=== PATIENT | male | born 1965 | race Caucasian/White ===

== ENCOUNTER 2019-08-23 08:51 | Emergency (ER) | payer BC, OTHER ==
[2019-08-23 09:55] LABS: #Basophils 0.1 thou/uL (0.0-0.2); #Eosinphils 0.1 thou/uL (0.0-0.7); #Lymphocytes 1.6 thou/uL (1.20-3.40); #Monocytes 0.9 thou/uL (0.11-0.59); %Basophils 0.4 % (0.0-1.0); %Eosinophils 0.7 % (0.0-10.0); Hemoglobin 15.2 g/dL (14.0-18.0); Mean Corpuscular HGB CONC 32.8 g/dL (32.0-36.0); Mean Corpuscular Hemoglobin 31.4 pg (27.0-31.0); Mean Corpuscular Volume 95.7 fL (78.0-98.0); Mean Platelet Volume 6.9 fL (7.4-10.4); Platelet Count 325 thou/uL (130-400); Red Blood Cell (RBC) Count 4.85 mill/uL (4.70-6.10); White Blood Cell (WBC) Count 14.7 thou/uL (4.8-10.8)
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
[2019-08-23 10:12] LABS: ALT (SGPT) 27 U/L (8-55); AST (SGOT) 25 U/L (5-34); Albumin 4.8 g/dL (3.5-5.0); Alkaline Phosphatase 46 U/L (40-110); Anion Gap 16 mmol/L (10-20); BUN (Urea Nitrogen) 11 mg/dL (8.4-25.7); Bilirubin, Total 0.7 mg/dL (0.2-1.2); Calc. Creatinine Clearance 0 mL/min (70-130); Calcium 9.7 mg/dL (7.8-10.44); Carbon Dioxide 23 mmol/L (22-29); Chloride 102 mmol/L (98-107); Estimated GFR-MDRD 73; Globulin 2.8 g/dL (2.4-3.5); Glucose 102 mg/dL (70-105); Potassium 3.9 mmol/L (3.5-5.1); Protein, Total 7.6 g/dL (6.0-8.3); Sodium 137 mmol/L (136-145)
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
[2019-08-23] MEDS ORDERED: Acetaminophen 500 MG TAB ONE (10:30)
[2019-08-23] MEDS ORDERED: ISOVUE-370 76%-LOCM 1 ML ONE (11:27)
== END 2019-08-23 11:39 | disposition home or self-care (01) ==
LOC: ERS 08:51
DX: S35.09XA Other injury of abdominal aorta, initial encounter (principal); S43.402A Unspecified sprain of left shoulder joint, initial encounter; I10 Essential (primary) hypertension; F17.210 Nicotine dependence, cigarettes, uncomplicated; Z79.899 Other long term (current) drug therapy; V59.9XXA Occupant (driver) (passenger) of pick-up truck or van injured in unspecified traffic accident, initial encounter
CPT/HCPCS: 69200; 71260; 72125; 74177; 80053; 85025; 96360; 96361

== ENCOUNTER 2019-11-26 07:15 | Outpatient (CLI) | payer BC ==
[2019-11-26 09:58] LABS: Hemoglobin 15.1 g/dL (14.0-18.0); Mean Corpuscular HGB CONC 33.3 g/dL (32.0-36.0); Mean Corpuscular Hemoglobin 32.2 pg (27.0-31.0); Mean Corpuscular Volume 96.8 fL (78.0-98.0); Mean Platelet Volume 6.9 fL (7.4-10.4); Platelet Count 267 thou/uL (130-400); RBC Distribution Width 12.1 % (11.5-14.5); Red Blood Cell (RBC) Count 4.69 mill/uL (4.70-6.10); White Blood Cell (WBC) Count 9.7 thou/uL (4.8-10.8)
[2019-11-26 10:18] LABS: Anion Gap 12 mmol/L (10-20); BUN (Urea Nitrogen) 8 mg/dL (8.4-25.7); Calc. Creatinine Clearance 0 mL/min (70-130); Calcium 10.3 mg/dL (7.8-10.44); Carbon Dioxide 29 mmol/L (22-29); Chloride 99 mmol/L (98-107); Estimated GFR-MDRD 82; Glucose 101 mg/dL (70-105); Potassium 3.8 mmol/L (3.5-5.1); Sodium 136 mmol/L (136-145)
== END 2019-11-26 07:16 | disposition home or self-care (01) ==
LOC: LABBT 07:15
PROVIDERS: ATTEND Thoracic Surgery (Cardiothoracic Vascular Surgery)
DX: Z01.812 Encounter for preprocedural laboratory examination (principal); I71.4 Abdominal aortic aneurysm, without rupture
CPT/HCPCS: 80048; 85027

== ENCOUNTER 2019-11-26 14:21 | Outpatient (CLI) | payer OTHER ==
--- NOTE | 2019-11-26 15:11 | ULT ---
Soft tissue sonogram right groin HISTORY: Right groin pain. FINDINGS: Good color flow within the iliac vessels. No solid or cystic masses. No evidence of protrusion of abdominal contents into the inguinal canal upon Valsalva. IMPRESSION: No abnormalities of the right inguinal canal evident.
== END 2019-11-26 14:22 | disposition home or self-care (01) ==
LOC: BICULT 14:21
PROVIDERS: ATTEND Family Medicine
DX: R10.31 Right lower quadrant pain (principal)
CPT/HCPCS: 76999

== ENCOUNTER 2019-11-28 06:03 | Day surgery (SDC) | payer BC ==
[2019-11-26 09:05] VITALS: BMI 25.0
[2019-11-28] MEDS ORDERED: Heparin (Artline) 500 ML ONE ×2 (06:36→08:01)
[2019-11-28] MEDS ORDERED: Lidocaine 1% (PF) 30 ML VIAL ONE (06:37)
--- NOTE | 2019-11-28 07:25 | HP ---
HISTORY OF PRESENT ILLNESS: This is a 54-year-old gentleman being evaluated for abdominal aortic aneurysm repair, who has a 4.4 cm infrarenal abdominal aortic aneurysm with a sizable inferior mesenteric artery and is being brought in today for outpatient coil embolization of his inferior mesenteric artery. He is not felt to be suitable for an open repair due to severe emphysematous lung disease and inability to stop smoking. PAST MEDICAL HISTORY: Includes hypertension and dyslipidemia. SOCIAL HISTORY: The patient smokes a pack of cigarettes a day, not really interested in quitting. He does not drink alcohol. 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 He does have children and is . His is also a smoker. FAMILY HISTORY: He has a family history positive for abdominal aortic aneurysm disease. ALLERGIES: HE HAS NO KNOWN ALLERGIES. MEDICATIONS: Include; 1. Naprosyn. 2. Orphenadrine citrate ER 100 mg b.i.d. as needed. 3. Atorvastatin 20 a day. 4. Chlorthalidone 25 mg daily. PHYSICAL EXAMINATION: VITAL SIGNS: Heart rate 80, blood pressure 140/90, height 6 feet 1 inch, weight 193. NECK: No carotid bruits. LUNGS: Clear to auscultation. Increased chest AP diameter. CARDIAC: Regular rate and rhythm. No murmurs. ABDOMEN: Unable to palpate his abdominal aortic aneurysm with a slight diastasis recti present. EXTREMITIES: He has no peripheral edema with palpable femoral, popliteal, and posterior tibial pulses. NEUROLOGIC: Unremarkable. ASSESSMENT AND PLAN: I have discussed continued observation, endovascular aneurysm repair with embolization of the KEVIN first and he wishes to proceed with this and I have also discussed this with his . I have written him a prescription for Chantix in the past; however, he has not stopped smoking. Job ID: [id number]
[2019-11-28] MEDS ORDERED: Midazolam HCl 2 mg/2 ml Vial ONE (07:39)
[2019-11-28] MEDS ORDERED: Heparin 10,000 UNITS/1 ML VIAL ONE (08:01)
[2019-11-28] MEDS ORDERED: Fentanyl 100 MCG/2 ML VIAL ONE ×2 (08:48→12:42)
[2019-11-28] MEDS ORDERED: Iopamidol 370 76% 50 ML VIAL FS ONE (08:57)
--- NOTE | 2019-11-28 09:19 | OP ---
DATE OF PROCEDURE: 11/28/2019 PREOPERATIVE DIAGNOSIS: Abdominal aortic aneurysm with patent inferior mesenteric artery. PROCEDURE PERFORMED: Aortography with coiling of the inferior mesenteric artery with 5 x 8 Interlock coils x2. ANESTHESIA: Lidocaine with IV sedation. FLUOROSCOPY: 36.7 minutes. CONTRAST: 34 mL. DESCRIPTION OF PROCEDURE: After prepping and draping, right groin was infiltrated with lidocaine and ultrasound-guided puncture of the femoral artery was performed. A 5-Burundian dilator and sheath were placed ultimately, placing a 5-Burundian fresh Destination sheath. Aortography was obtained, demonstrating the KEVIN. In the lateral projection, using a Mateusz catheter, Vert catheter, and finally an KEVIN catheter, the inferior mesenteric artery was cannulated. There was a tight stenosis at the origin. A 0.014 wire was advanced, and through that, the micro catheter advanced, 2 coils deployed and the catheters removed. The patient tolerated the procedure well. Job ID: [id number]
== END 2019-11-28 15:03 | disposition home or self-care (01) ==
LOC: CCL 06:03
PROVIDERS: ATTEND Thoracic Surgery (Cardiothoracic Vascular Surgery)
PROC: 04VB3DZ Restriction of Inferior Mesenteric Artery with Intraluminal Device, Percutaneous Approach (ICD-10-PCS; principal; 2019-11-28)
DX: I71.4 Abdominal aortic aneurysm, without rupture (principal); I10 Essential (primary) hypertension; F17.210 Nicotine dependence, cigarettes, uncomplicated; J43.1 Panlobular emphysema; E78.2 Mixed hyperlipidemia; E78.00 Pure hypercholesterolemia, unspecified; Z79.899 Other long term (current) drug therapy
CPT/HCPCS: 36245; 37242; 75625; 76942; 99152; 99153; C1769; J1644; J2001; J2250; J3010; Q9967

== ENCOUNTER 2019-12-06 05:45 | Outpatient (CLI) | payer BC ==
[2019-12-06 11:22] LABS: Hemoglobin 14.7 g/dL (14.0-18.0); Mean Corpuscular HGB CONC 33.1 g/dL (32.0-36.0); Mean Corpuscular Hemoglobin 31.9 pg (27.0-31.0); Mean Corpuscular Volume 96.5 fL (78.0-98.0); Mean Platelet Volume 6.5 fL (7.4-10.4); Platelet Count 382 thou/uL (130-400); RBC Distribution Width 12.1 % (11.5-14.5); Red Blood Cell (RBC) Count 4.61 mill/uL (4.70-6.10); White Blood Cell (WBC) Count 11.3 thou/uL (4.8-10.8)
== END 2019-12-06 05:46 | disposition home or self-care (01) ==
LOC: LABBT 05:45
PROVIDERS: ATTEND Thoracic Surgery (Cardiothoracic Vascular Surgery)
DX: Z01.812 Encounter for preprocedural laboratory examination (principal); I71.4 Abdominal aortic aneurysm, without rupture
CPT/HCPCS: 85027

== ENCOUNTER 2019-12-06 10:30 | Inpatient (IN) | payer BC ==
[2019-12-06 11:43] LABS: Anion Gap 12 mmol/L (10-20); BUN (Urea Nitrogen) 10 mg/dL (8.4-25.7); Calc. Creatinine Clearance 0 mL/min (70-130); Calcium 9.5 mg/dL (7.8-10.44); Carbon Dioxide 29 mmol/L (22-29); Chloride 101 mmol/L (98-107); Estimated GFR-MDRD Greater than 90; Glucose 89 mg/dL (70-105); Potassium 3.8 mmol/L (3.5-5.1); Sodium 138 mmol/L (136-145)
[2019-12-07] MEDS ORDERED: Heparin 10,000 UNITS/1 ML VIAL ONE ×2 (06:30→06:40)
[2019-12-07] MEDS ORDERED: Fentanyl 100 MCG/2 ML VIAL ONE ×3 (06:34→10:06)
[2019-12-07] MEDS ORDERED: Midazolam HCl 2 mg/2 ml Vial ONE (06:34)
[2019-12-07] MEDS ORDERED: Protamine Sulfate 50 MG/5 ML VIAL ONE ×2 (06:40→08:56)
[2019-12-07] MEDS ORDERED: Heparin 5,000 UNITS/ML VIAL ONE (06:40)
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
[2019-12-07] MEDS ORDERED: Promethazine HCl 25 MG/ML VIAL SLOW IVP PRN (09:25)
[2019-12-07] MEDS ORDERED: Promethazine HCl 25 MG/ML VIAL IM PRN ×2 (09:25→10:13)
[2019-12-07] MEDS ORDERED: Ondansetron HCl/PF 4 MG/2 ML Vial IVP PRN (09:25)
--- NOTE | 2019-12-07 10:10 | OP ---
DATE OF PROCEDURE: 12/07/2019 PREOPERATIVE DIAGNOSIS: Abdominal aortic aneurysm. PROCEDURE PERFORMED: Endovascular aneurysm repair with Endurant system using a main body right 28, 16, 166 and a left limb 16, 16, 124. ESTIMATED BLOOD LOSS: 100. CONTRAST: 60. FLUORO: 12.55 minutes. DESCRIPTION OF PROCEDURE: After prepping and draping, ultrasound-guided puncture of the right and left common femoral arteries was undertaken and ProGlide was deployed x2 on each side. A 14-Sammarinese sheath was placed bilaterally. Following this, floppy wires were exchanged for stiff wires over a catheter. Following which, the 12-Sammarinese sheath was placed up the left side and left at about the L3 level pigtail placed up the right side, contrast study obtained. Main body was then barebacked over the wire on the right side and deployed after confirmation with a repeat angiogram just below the renal arteries. Prospect was cannulated on second pass, and the left limb was then deployed. Balloons were then used to inflate throughout the graft. Following which, completion angiography showed a light type 2 leak with no type 1 leak. The patient tolerated the procedure well. Job ID: [id number]
[2019-12-07] MEDS ORDERED: HYDROcodone/Acetaminophen 5/325 mg Tablet PO PRN (10:13)
[2019-12-07] MEDS ORDERED: Sodium Chloride 0.9% 1,000 ML IV SCH (10:13)
[2019-12-07] MEDS ORDERED: Nitroglycerin 50 MG/250 ML BOT 250 ML IVPB PRN (10:13)
[2019-12-07] MEDS ORDERED: Acetaminophen 325 MG TAB PO PRN (10:13)
[2019-12-07] MEDS ORDERED: Ondansetron PF 4 MG/2 ML Vial IVP PRN (10:13)
[2019-12-07] MEDS ORDERED: Norepinephrine 8 MG/0.9% NS 250 ML IVPB PRN (10:13)
[2019-12-07] MEDS ORDERED: Fentanyl 100 MCG/2 ML VIAL SLOW IVP PRN (10:13)
[2019-12-07] MEDS ORDERED: Ketorolac Tromethamine 30 MG/ML VIAL ONE (10:38)
[2019-12-07] MEDS ORDERED: Rocuronium Bromide 10 MG/ML (10ML VIAL) ONE (10:38)
[2019-12-07] MEDS ORDERED: Lidocaine 1% PF 5 ML VIAL ONE (10:38)
[2019-12-07] MEDS ORDERED: PROPOFOL 200 MG/20 ML VIAL ONE (10:38)
[2019-12-07] MEDS ORDERED: Glycopyrrolate 0.2 MG/ML 5 ML SYRINGE ONE (10:38)
[2019-12-07] MEDS ORDERED: Dexamethasone 20 MG/5 ML VIAL ONE (10:38)
[2019-12-07] MEDS ORDERED: Ondansetron PF 4 MG/2 ML Vial ONE (10:38)
[2019-12-07 11:05] VITALS: BMI 24.9
[2019-12-07] MEDS: CEFAZOLIN 2 GM in Premix Bag 1 BAG IVPB SCH ×2 (13:42→21:32)
[2019-12-07] MEDS: HYDROcodone/Acetaminophen 5/325 mg Tablet PO PRN ×2 (13:55→18:32)
--- NOTE | 2019-12-07 14:32 | RAD ---
CHEST 1 VIEW: Date: 12/07/2019 HISTORY: Possible aspiration, missing tooth. FINDINGS: Monitor leads overlie the chest. No confluent pneumonia, overt edema, or pleural effusion. Heart size is within normal limits. There is no convincing evidence for an aspirated tooth or other abnormal op aque foreign body. IMPRESSION: Unremarkable chest 1 view. No convincing evidence for an aspirated tooth or other foreign body. POS: [facility]
[2019-12-08] MEDS: HYDROcodone/Acetaminophen 5/325 mg Tablet PO PRN (00:50)
[2019-12-08 03:32] LABS: #Eosinphils 0.1 thou/uL (0.0-0.7); #Lymphocytes 1.8 thou/uL (1.20-3.40); #Monocytes 0.9 thou/uL (0.11-0.59); #Neutrophils 10.6 thou/uL (1.40-6.50); %Basophils 0.1 % (0.0-1.0); %Eosinophils 0.5 % (0.0-10.0); %Lymphocytes 13.3 % (21.0-51.0); %Monocytes 6.5 % (0.0-10.0); %Neutrophils 79.5 % (42.0-75.0); Hemoglobin 13.3 g/dL (14.0-18.0); Mean Corpuscular HGB CONC 34.5 g/dL (32.0-36.0); Mean Corpuscular Hemoglobin 33.3 pg (27.0-31.0); Mean Corpuscular Volume 96.4 fL (78.0-98.0); Mean Platelet Volume 6.9 fL (7.4-10.4); Platelet Count 315 thou/uL (130-400); White Blood Cell (WBC) Count 13.3 thou/uL (4.8-10.8)
[2019-12-08] MEDS ORDERED: Calcium Carbonate 500 MG ChewTAB PO PRN (03:50)
[2019-12-08 03:52] LABS: Anion Gap 13 mmol/L (10-20); BUN (Urea Nitrogen) 9 mg/dL (8.4-25.7); Calc. Creatinine Clearance 136 mL/min (70-130); Calcium 8.9 mg/dL (7.8-10.44); Carbon Dioxide 24 mmol/L (22-29); Chloride 103 mmol/L (98-107); Estimated GFR-MDRD Greater than 90; Glucose 105 mg/dL (70-105); Potassium 3.4 mmol/L (3.5-5.1); Sodium 137 mmol/L (136-145)
[2019-12-08 04:25] VITALS: TEMP 98.2
[2019-12-08] MEDS: CEFAZOLIN 2 GM in Premix Bag 1 BAG IVPB SCH (07:17)
[2019-12-08] MEDS ORDERED: Famotidine 20 MG TAB PO SCH (09:00)
[2019-12-08] MEDS ORDERED: Aspirin Chewable 81 MG TAB PO SCH (09:00)
[2019-12-08] MEDS ORDERED: Atorvastatin Calcium 20 MG TAB PO SCH (21:00)
== END 2019-12-08 09:21 | disposition home or self-care (01) | DRG 269 ==
LOC: SURG A 12-07 06:23 → CCU 12-07 10:28
PROVIDERS: ADMIT Thoracic Surgery (Cardiothoracic Vascular Surgery); ATTEND Thoracic Surgery (Cardiothoracic Vascular Surgery)
PROC: 04V03DZ Restriction of Abdominal Aorta with Intraluminal Device, Percutaneous Approach (ICD-10-PCS; principal; 2019-12-07)
DX: I71.4 Abdominal aortic aneurysm, without rupture (principal); J43.9 Emphysema, unspecified; F17.200 Nicotine dependence, unspecified, uncomplicated; I10 Essential (primary) hypertension; E78.5 Hyperlipidemia, unspecified; Z79.899 Other long term (current) drug therapy; Z79.1 Long term (current) use of non-steroidal anti-inflammatories (NSAID)
CPT/HCPCS: 36415; 71045; 76000; 80048; 85025; 85027; 86850; 86900; 86901; 94640; C1726; C1760; C1769; C1894; J0690; J1100; J1642; J1644; J1885; J2001; J2250; J2405; J2704; J2720; J3010; J7620